=== PATIENT | male | born 1970 | race Caucasian/White ===

== ENCOUNTER 2018-11-26 12:31 | Emergency (ER) | payer OTHER ==
[~2018-11-26] VITALS: Ht 167.6 cm; Wt 72.6 kg
[2018-11-26 12:31] VITALS: BP_SYST 136
--- NOTE | 2018-11-26 12:31 | NUR ---
BROUGHT BACK TO BED #4 AND TRIAGED. REPORT GIVEN TO KHRIS
--- NOTE | 2018-11-26 12:49 | NUR ---
ER Dr. IRWIN at bedside examining patient.
--- NOTE | 2018-11-26 12:52 | NUR ---
PATIENT CAME IN COMPLAINING OF COUGH AND FEVER, UP TO 103, SINCE FRIDAY. PATIENT ALSO COMPLAINING OF BLOOD WHEN COUGHING. PATIENT COMPLAINING OF MIGARINE AND BODY ACHES. PATIENT HAS SOME NAUSEA AND DIZZINESS. PATIENT DENIES VOMITING AND DIRRHEA. PATIENT COMPLAINING OF CHEST SORENESS. PATIENT STATES HE TOOK DAYQUIL, IBUPROFEN, AND TYLENOL WITH NO RELIEF. PATIENT ALERT AND ORIENTED X4.
[2018-11-26] MEDS: ONDANSETRON 4 MG ODT TAB PO ONE (13:03)
[2018-11-26] MEDS: ACETAMINOPHEN WITH CODEINE 12.5 ML UDC PO ONE (13:03)
--- NOTE | 2018-11-26 13:05 | NUR ---
PATIENT GETTING X RAY IN BED.
--- NOTE | 2018-11-26 13:17 | NUR ---
INFLUENZA SENT TO LAB.
--- NOTE | 2018-11-26 13:26 | NUR ---
DR IRWIN AT BEDSIDE TALKING TO PATIENT.
[2018-11-26] MEDS: cefTRIAXone 1 GM in LIDOCAINE 1%, 20 ML MDV 2.1 ML IM ONE (13:48)
[2018-11-26 14:10] VITALS: BP_SYST 136
--- NOTE | 2018-11-26 14:10 | NUR ---
Patient given written and verbal discharge instructions and verbalizes understanding. ER MD discussed with patient the results and treatment provided. Patient in stable condition. ID arm band removed. Rx of Guaifenesin, azithromycin, Naprosyn, albuterol given. Patient educated on pain management and to follow up with PMD. Pain Scale 2/10 tolerated . Opportunity for questions provided and answered. Medication side effect fact sheet provided.
== END 2018-11-26 14:10 | disposition home or self-care (01) ==
LOC: SED 12:31
DX: J18.1 Lobar pneumonia, unspecified organism (principal); F17.200 Nicotine dependence, unspecified, uncomplicated
CPT/HCPCS: 36415; 71045; 86710; 96372; 99284; J0696; J2001; Q0162

== ENCOUNTER 2018-11-29 20:30 | Emergency (ER) | payer OTHER ==
[~2018-11-29] VITALS: Ht 167.6 cm; Wt 72.6 kg
--- NOTE | 2018-11-29 20:30 | NUR ---
Patient to ER bed 08 to gown for evaluation. Side rails up.
--- NOTE | 2018-11-29 20:30 | NUR ---
patient arrived AOx4 from home with c/o cough that wont go away x 2 weeks. patient stated he was seen last friday and given a Zpac and cough medication. patient doesn't have anyone cough medication. patient states smokes but smokes less than 5 a day now that he is sick. patient has problems catching breath while talking however, does not have SOB with walking. patient did not see his primary care doctor. patient stated "they told me to come back." no other complaint or injury at this time. Addendum: 11/29/18 at 2106 by [email or web address] patient is CTA at time with an unproductive cough.
[2018-11-29 20:35] VITALS: BP_SYST 126
--- NOTE | 2018-11-29 20:45 | NUR ---
ER at bedside examining patient.
--- NOTE | 2018-11-29 21:02 | NUR ---
bedside xray preformed.
[2018-11-29] MEDS ORDERED: CLINDAMYCIN PHOSPHATE 300 MG/2 ML VIAL IM ONE (21:30)
[2018-11-29 21:45] VITALS: BP_SYST 126
--- NOTE | 2018-11-29 21:45 | NUR ---
Patient given written and verbal discharge instructions and verbalizes understanding. ER MD discussed with patient the results and treatment provided. Patient in stable condition. ID arm band removed. Rx of Promethazine and Augmentin given. Patient educated on pain management and to follow up with PMD. Pain Scale 0/10. Opportunity for questions provided and answered. Medication side effect fact sheet provided.
== END 2018-11-29 21:45 | disposition home or self-care (01) ==
LOC: SED 20:30
DX: J18.9 Pneumonia, unspecified organism (principal)
CPT/HCPCS: 71045; 96372; 99283; J3490

== ENCOUNTER 2019-08-05 17:49 | Emergency (ER) | payer BC, OTHER ==
[~2019-08-05] VITALS: Ht 167.6 cm; Wt 72.6 kg
[2019-08-05] MEDS ORDERED: ASPIRIN 81 MG TAB.CHEW PO ONE (18:30)
[2019-08-05 18:48] LABS: BASOPHILS % (AUTO) 0.4 % (0.0-2.0); EOSINOPHILS % (AUTO) 0.5 % (0.0-4.0); HEMATOCRIT 42.9 % (36-54); HEMOGLOBIN 14.6 g/dL (14.0-18.0); LYMPHOCYTES # (AUTO) 2.6 K/uL (1.0-5.5); LYMPHOCYTES % (AUTO) 28.5 % (20.5-51.5); MEAN CORPUSCULAR HEMOGLOBIN 33 pg (27-31); MEAN CORPUSCULAR HGB CONC 34 % (32-36); MEAN CORPUSCULAR VOLUME 96 fL (79.0-98.0); MONOCYTES # (AUTO) 0.9 K/uL (0.0-1.0); MONOCYTES % (AUTO) 9.5 % (1.7-9.3); NEUTROPHILS # (AUTO) 5.5 K/uL (1.8-7.7); NEUTROPHILS % (AUTO) 61.1 % (40.0-70.0); PLATELET COUNT (AUTO) 203 K/uL (130-430); RED BLOOD CELL COUNT(AUTO) 4.48 MIL/uL (4.2-6.2); RED CELL DISTRIBUTION WIDTH 12.9 % (9.0-15.0)
[2019-08-05 19:00] LABS: CALCIUM 8.9 mg/dL (8.4-11.0); CREATININE 1.02 mg/dL (0.55-1.30)
[2019-08-05 19:05] LABS: ALBUMIN 3.8 g/dL (3.4-4.8); TOTAL BILIRUBIN 0.4 mg/dL (0.0-1.0)
[2019-08-05 20:12] VITALS: BP_SYST 135
[2019-08-05 20:50] VITALS: BP_SYST 135
== END 2019-08-05 20:50 | disposition home or self-care (01) ==
LOC: SED 17:49
DX: R00.2 Palpitations (principal); R07.89 Other chest pain; F41.9 Anxiety disorder, unspecified
CPT/HCPCS: 36415; 71045; 80053; 83880; 84484; 85025; 93005; 99285